=== PATIENT | male | born 2000 | race Two or more races ===

== ENCOUNTER 2021-08-14 22:14 | Emergency (ER) | payer SELFPAY ==
[~2021-08-14] VITALS: Ht 190.5 cm; Wt 77.1 kg
[2021-08-14 22:32] VITALS: BP 155/97
== END 2021-08-15 00:10 | disposition left against medical advice (07) ==
LOC: EDBD 22:14 → ER 22:14
DX: F41.0 Panic disorder [episodic paroxysmal anxiety] (principal); R06.02 Shortness of breath; Z53.21 Procedure and treatment not carried out due to patient leaving prior to being seen by health care provider